=== PATIENT | female | born 1955 | race Caucasian/White ===

== ENCOUNTER 2017-04-02 08:26 | Emergency (ER) | payer BC ==
[~2017-04-02] VITALS: Ht 162.6 cm; Wt 100.7 kg
[~2017-04-02 08:26] MED LIST: IBUP-2213 PO
[2017-04-02 08:41] VITALS: BP 138/59
--- NOTE | 2017-04-02 08:49 | NUR ---
Patient ambulated to bed 04.
[2017-04-02] MEDS ORDERED: NACL 0.9% 1,000 ML IV SCH (08:51)
[2017-04-02] MEDS ORDERED: ONDANSETRON 4 MG/2 ML VIAL IVP ONE (08:55)
[2017-04-02] MEDS ORDERED: FAMOTIDINE 20 MG/2 ML VIAL IVP ONE (08:55)
--- NOTE | 2017-04-02 08:55 | NUR ---
Dr. Browne evaluating patient at bedside.
--- NOTE | 2017-04-02 08:59 | NUR ---
62/F TO ED WITH C/O ABD PAIN RADIATING TO RIGHT FLANK X6 HOURS WITH VOMITING. PAIN 10/10. DENIES DIARRHEA. BOWEL SOUNDS PRESENT X4Q. LUNGS CLEAR BILAT. HR EVEN AND REGULAR. AAOX4. VSS. NO SIGNS OF DISTRESS.
[2017-04-02] MEDS ORDERED: KETOROLAC 30 MG/ML VIAL IVP ONE (09:00)
[2017-04-02 09:16] LABS: HEMATOCRIT 40.2 % (36-48); HEMOGLOBIN 13.3 g/dL (12.0-16.0); MEAN CORPUSCULAR HEMOGLOBIN 29 pg (27-31); MEAN CORPUSCULAR HGB CONC 33 g/dL (33-37); MEAN CORPUSCULAR VOLUME 89 fL (80-94); PLATELET COUNT (AUTO) 186 K/uL (140-450); RED BLOOD CELL COUNT(AUTO) 4.54 MIL/uL (4.20-5.40); RED CELL DISTRIBUTION WIDTH 13.1 % (11.6-13.7); WHITE BLOOD COUNT (AUTO) 15.1 K/uL (4.8-10.8)
[2017-04-02 09:18] LABS: BILIRUBIN,URINE NEGATIVE (NEGATIVE); BLOOD, URINE 3+ (NEGATIVE); COLOR,URINE YELLOW (YELLOW); LEUKOCYTE ESTERASE ,URINE NEGATIVE (NEGATIVE); NITRITE, URINE NEGATIVE (NEGATIVE); PH,URINE 8.5 (5.0-9.0); PROTEIN,URINE TRACE (NEGATIVE); UGLUCOSE NEGATIVE (NEGATIVE); UROBILINOGEN,URINE 0.2 EU/dL (0.2 - 1)
[2017-04-02 09:20] LABS: APPEARANCE,URINE HAZY (CLEAR)
[2017-04-02 09:22] LABS: BACTERIA,URINE OCCASSIONAL /HPF (None Seen); RBC,URINE 11-20 (MOD) /HPF (0-5); SQUAMOUS EPITHELIAL CELL,UR 0-3 (FEW) /LPF (0-3 (FEW)); WBC,URINE 0-5 (RARE) /HPF (0-5)
[2017-04-02 09:26] LABS: BAND % (MANUAL) 1 % (0-8); BASOPHILS % (MANUAL) 1 % (0-2); EOSINOPHILS % (MANUAL) 2 % (0-4); LYMPHOCYTES % (MANUAL) 15 % (20-46); MONOCYTES % (MANUAL) 8 % (5-12); NEUTROPHILS % (MANUAL) 73 (43-65)
[2017-04-02 09:27] LABS: PLATELET ESTIMATE ADEQUATE
[2017-04-02 09:29] LABS: ANION GAP 9.8 (8-16); CALCIUM 8.6 mg/dL (8.5-10.1); CARBON DIOXIDE 29.9 mmol/L (21-32); CREATININE 0.8 mg/dL (0.6-1.3); POTASSIUM 3.7 mmol/L (3.5-5.1)
--- NOTE | 2017-04-02 09:30 | NUR ---
Patient going to CT and XRAY via wheelchair per techs.
[2017-04-02 09:34] LABS: ALBUMIN 3.5 g/dL (3.4-5.0); TOTAL BILIRUBIN 0.2 mg/dL (0.0-1.0); TOTAL PROTEIN, SERUM 7.1 g/dL (6.4-8.2)
[2017-04-02 09:38] LABS: PARTIAL THROMBOPLASTIN TIME 28.3 secs (22-35.6); PROTHROMBIN TIME 9.7 secs (10.8-13.4)
--- NOTE | 2017-04-02 09:46 | NUR ---
Patient back from CT/XRAY via wheelchair per tech.
--- NOTE | 2017-04-02 11:47 | NUR ---
Patient discharged with v/s stable. Written and verbal after care instructions given and explained. Patient alert, oriented and verbalized understanding of instructions. Ambulatory with steady gait. All questions addressed prior to discharge. ID band removed. Patient advised to follow up with PMD. Rx of ZOFRAN, TYLENOL WITH CODEINE, AND KEFLEX given. Patient educated on indication of medication including possible reaction and side effects. Opportunity to ask questions provided and answered.
[2017-04-02 11:48] VITALS: BP 141/67
== END 2017-04-02 11:47 | disposition home or self-care (01) ==
LOC: MED 08:26
DX: N20.0 Calculus of kidney (principal); E11.9 Type 2 diabetes mellitus without complications; Z90.49 Acquired absence of other specified parts of digestive tract
CPT/HCPCS: 36415; 71010; 74176; 80053; 81001; 82150; 83690; 83880; 84484; 85025; 85610; 85730; 93005; J1885; J2405; J3490; J7030; 96361; 96374; 96375; 99285

== ENCOUNTER 2021-08-06 07:09 | Emergency (ER) | payer BC ==
[~2021-08-06] VITALS: Ht 157.5 cm; Wt 95.3 kg
[~2021-08-06 07:09] MED LIST changes: +ESOM20CA PO; -IBUP-2213 PO
[2021-08-06 07:14] VITALS: BP 162/91
--- NOTE | 2021-08-06 07:15 | NUR ---
PT W/C ASSISSTED TO BED 7.
--- NOTE | 2021-08-06 07:22 | NUR ---
66 Y/O F BIB DAUGHTER FROM HOME, PT PRESENTS TO ED WITH L TEMPORAL REGION OF HEAD PAIN AND LAC. PT STATES SHE HIT A DOOR, PARAMEDICS RECOMMENDED SHE COME TO ER FOR CLOSER INSPECTION. PT AT THIS TIME C/O DIZZINESS. DENIES N/V/D. ACTIVE BLEEDING AT THIS TIME, DAUGHTER APPLYING PRESSURE ON WOUND AT THIS TIME. Nader VENEGAS&OX4 UNABLE TO AMBULATE AT THIS TIME. PMH: DENIES NKA MED: DENIES
--- NOTE | 2021-08-06 08:12 | NUR ---
PT RETURNED BACK FROM CT.
[2021-08-06] MEDS ORDERED: MORPHINE SULFATE 4 MG/ML SYR IM ONE (08:15)
--- NOTE | 2021-08-06 08:43 | NUR ---
PT UNABLE TO AMBULATE AT THIS TIME, WAS ASSISTED ONTO BEDPAN TO VOID.
--- NOTE | 2021-08-06 08:55 | NUR ---
PT WAS ASSISTED OFF BEDPAN, LARGE, SOFT BROWN STOOL. PT WAS CLEANED, LINENS WERE CHANGED AT THIS TIME. PT IN UPRIGHT POSITION AT THIS TIME PER REQUEST.
[2021-08-06] MEDS ORDERED: ACET-8386 PO (09:10)
[2021-08-06] MEDS ORDERED: IBUP-2213 PO (09:10)
--- NOTE | 2021-08-06 09:18 | NUR ---
Patient discharged with v/s stable. Written and verbal after care instructions given and explained. Patient alert, oriented and verbalized understanding of instructions. Wheel Chair Assisted with to car. All questions addressed prior to discharge. ID band removed. Patient advised to follow up with PMD. Rx of HYDROCODONE, IBUPROFEN given. Patient educated on indication of medication including possible reaction and side effects. Opportunity to ask questions provided and answered.
[2021-08-06 09:24] VITALS: BP 162/91
== END 2021-08-06 09:18 | disposition home or self-care (01) ==
LOC: MED 07:09
DX: S01.01XA Laceration without foreign body of scalp, initial encounter (principal); W19.XXXA Unspecified fall, initial encounter; Y93.89 Activity, other specified; Y92.89 Other specified places as the place of occurrence of the external cause; Y99.8 Other external cause status
CPT/HCPCS: 12004; 70450; 70486; 96372; 99285; J2270

== ENCOUNTER 2021-08-15 09:33 | Emergency (ER) | payer BC ==
[~2021-08-15] VITALS: Ht 160 cm; Wt 105.7 kg
[~2021-08-15 09:33] MED LIST changes: +ACET-8386 PO; +IBUP-2213 PO
[2021-08-15 10:08] VITALS: BP 159/95
--- NOTE | 2021-08-15 11:16 | NUR ---
Dr. Gamino removing stiches in chair B.
--- NOTE | 2021-08-15 11:45 | NUR ---
Patient discharged with v/s stable. Written and verbal after care instructions given and explained. Patient verbalized understanding. Ambulatory with steady gait. All questions addressed prior to discharge. Advised to follow up with PMD.
== END 2021-08-15 11:45 | disposition home or self-care (01) ==
LOC: MED 09:33
DX: S01.01XD Laceration without foreign body of scalp, subsequent encounter (principal); Z79.899 Other long term (current) drug therapy; X58.XXXD Exposure to other specified factors, subsequent encounter
CPT/HCPCS: 99281

== ENCOUNTER 2022-11-27 08:37 | Emergency (ER) | payer BC, OTHER ==
[~2022-11-27] VITALS: Ht 160 cm; Wt 104.3 kg
[~2022-11-27 08:37] MED LIST changes: -ACET-8386 PO; +ACET-8905 PO
[2022-11-27 08:41] VITALS: BP 120/63
--- NOTE | 2022-11-27 08:45 | NUR ---
67F presents to ED with c/o bilateral knee pain x2 weeks. Pt reports a constant, aching like 10/10 pain to knees bilaterally worsening yesterday. Pt denies trauma/injury to lower extremities. Pt reports taking ibuprofen this morning at 0700 for pain with no relief.
--- NOTE | 2022-11-27 08:50 | NUR ---
PT AMBULATED TO BED 06
[2022-11-27] MEDS ORDERED: MORPHINE SULFATE 4 MG/ML SYR IM ONE (09:00)
[2022-11-27] MEDS ORDERED: KETOROLAC 30 MG/ML VIAL IM ONE (09:00)
[2022-11-27] MEDS ORDERED: LIDOCAINE 5% 1 EA PATCH TP ONE (09:00)
--- NOTE | 2022-11-27 09:22 | NUR ---
67 y/o female bib self, c/o bl knee pain for 2 weeks that worsened yesterday. pt denies any fall, trauma, or recent injury. pt states she took ibuprofen around 0700 with no relief. a&ox4, urdu speaking, ambulates slowly with steady gait. pmh: htn nka
[2022-11-27] MEDS ORDERED: OMEP40EC23 PO (09:41)
[2022-11-27] MEDS ORDERED: IBUP-2213 PO (09:41)
[2022-11-27] MEDS ORDERED: LID5T TP (09:43)
[2022-11-27 10:07] VITALS: BP 120/87
--- NOTE | 2022-11-27 10:07 | NUR ---
Patient discharged with v/s stable. Written and verbal after care instructions given. Patient alert, oriented and verbalized understanding of instructions. Ambulatory with steady gait. All questions addressed prior to discharge. ID band removed. Patient advised to follow up with PMD. Rx of Ibuprofen, Lidocaine and Prilosec given. Opportunity to ask questions provided and answered. WORK NOTE HANDED TO PATIENT.
--- NOTE | 2022-11-27 10:08 | NUR ---
The patient's care was reviewed and supervised by Shyann Cash, RN, RN.
== END 2022-11-27 10:07 | disposition home or self-care (01) ==
LOC: MED 08:37
DX: M25.562 Pain in left knee (principal); M25.561 Pain in right knee
CPT/HCPCS: 96372; 99284; J1885; J2270

== ENCOUNTER 2023-03-03 11:56 | Emergency (ER) | payer BC ==
[~2023-03-03] VITALS: Ht 157.5 cm; Wt 92.1 kg
[~2023-03-03 11:56] MED LIST changes: +LID5T TP; +OMEP40EC23 PO
[2023-03-03 12:14] VITALS: BP 149/73
--- NOTE | 2023-03-03 12:58 | NUR ---
PT WALKED TO ROOM 12 WITH CO DIZINESS IN STEADY GAIT.
[2023-03-03 14:33] LABS: BASOPHILS % (AUTO) 0.2 % (0.0-2.0); EOSINOPHILS # (AUTO) 0.1 K/uL (0-0.4); EOSINOPHILS % (AUTO) 1.3 % (0.0-4.0); HEMATOCRIT 40.7 % (36-48); HEMOGLOBIN 13.4 g/dL (12.0-16.0); LYMPHOCYTES # (AUTO) 2.8 K/uL (2.5-16.5); LYMPHOCYTES % (AUTO) 25.6 % (20.5-51.1); MEAN CORPUSCULAR HEMOGLOBIN 29 pg (27-31); MEAN CORPUSCULAR HGB CONC 33 g/dL (33-37); MEAN CORPUSCULAR VOLUME 88.3 fL (80-94); MONOCYTES # (AUTO) 0.8 K/uL (0.8-1.0); MONOCYTES % (AUTO) 7.3 % (1.7-9.3); NEUTROPHILS # (AUTO) 7.2 K/uL (1.8-7.7); NEUTROPHILS % (AUTO) 65.6 % (42.2-75.2); PLATELET COUNT (AUTO) 217 K/uL (140-450); RED BLOOD CELL COUNT(AUTO) 4.61 MIL/uL (4.20-5.40); RED CELL DISTRIBUTION WIDTH 14.1 % (11.6-13.7); WHITE BLOOD COUNT (AUTO) 11.1 K/uL (4.8-10.8)
[2023-03-03] MEDS: SCOPOLAMINE 1.5 MG/72 HR PATCH TD SCH (14:35)
[2023-03-03 14:50] LABS: ALBUMIN 3.6 g/dL (3.4-5.0); ASPARTATE AMINOTRANSFERASE 25 U/L (15-37); CARBON DIOXIDE 29.8 mmol/L (21-32); CHLORIDE 106 mmol/L (98-107); CREATININE 0.6 mg/dL (0.6-1.3); GFR ARICAN-AMERICAN 129 mL/min (>90); GLUCOSE 113 mg/dL (74-106); POTASSIUM 3.8 mmol/L (3.5-5.1); SODIUM SERUM 144 mmol/L (136-145); TOTAL BILIRUBIN 0.4 mg/dL (0.0-1.0); UREA NITROGEN, BLOOD 20 mg/dL (7-18)
--- NOTE | 2023-03-03 15:00 | NUR ---
SCOPOLAMINE PATCH WAS ORDERED. BUT PHARMACY RUNNING OUT. NOTIFIED.
[2023-03-03] MEDS ORDERED: SCOP0.333 TP (15:03)
[2023-03-03 15:08] LABS: APPEARANCE,URINE CLEAR (CLEAR); BILIRUBIN,URINE NEGATIVE (NEGATIVE); BLOOD, URINE TRACE-I (NEGATIVE); COLOR,URINE YELLOW (YELLOW); LEUKOCYTE ESTERASE ,URINE NEGATIVE (NEGATIVE); NITRITE, URINE NEGATIVE (NEGATIVE); UGLUCOSE NEGATIVE (NEGATIVE)
[2023-03-03 15:11] LABS: RBC,URINE 0-5 /HPF (0-5); WBC,URINE NONE SEEN /HPF (0-5)
--- NOTE | 2023-03-03 15:17 | NUR ---
Patient discharged with v/s stable. Written and verbal after care instructions given and explained. Patient alert, oriented and verbalized understanding of instructions. Ambulatory with steady gait. All questions addressed prior to discharge. ID band removed. Patient advised to follow up with PMD. Rx of SCOPOLAMINE PATCHE given. Patient educated on indication of medication including possible reaction and side effects. Opportunity to ask questions provided and answered.
[2023-03-03 15:18] VITALS: BP 134/75
== END 2023-03-03 15:18 | disposition home or self-care (01) ==
LOC: MED 11:56
DX: H81.399 Other peripheral vertigo, unspecified ear (principal); H81.10 Benign paroxysmal vertigo, unspecified ear; I10 Essential (primary) hypertension; Z79.899 Other long term (current) drug therapy; Z79.1 Long term (current) use of non-steroidal anti-inflammatories (NSAID); Z79.891 Long term (current) use of opiate analgesic
CPT/HCPCS: 36415; 80053; 81001; 84484; 85025; 93005; 99284